=== PATIENT | female | born 1990 | race Caucasian/White ===

== ENCOUNTER 2018-01-30 14:42 | Outpatient (CLI) | payer OTHER ==
[~2018-01-30] VITALS: Ht 162.6 cm; Wt 83.6 kg
[~2018-01-30 14:42] MED LIST: DOCU-131 PO; DOXY100C2 PO; HYDR-3240 PO; IBUP-1222 PO; IBUP200T49 PO; OXYC-302 PO; PREN1TAB60 PO; ZOLP-413 PO
[2018-01-30] MEDS ORDERED: PREN1TAB60 PO (14:56)
[2018-01-30 14:58] VITALS: BP 112/68
== END 2018-01-30 17:00 | disposition home or self-care (01) ==
LOC: LDOP 14:42
PROVIDERS: ATTEND Obstetrics & Gynecology
DX: O36.8930 Maternal care for other specified fetal problems, third trimester, not applicable or unspecified (principal); Z3A.35 35 weeks gestation of pregnancy
CPT/HCPCS: 59025; 76819; 87081; 99201; G0463

== ENCOUNTER 2018-02-18 05:02 | Inpatient (IN) | payer OTHER ==
[~2018-02-18] VITALS: Ht 162.6 cm; Wt 85.7 kg
[2018-02-18] MEDS ORDERED: D5%-LACTATED RINGERS 1,000 ML IV SCH (05:08)
[2018-02-18] MEDS ORDERED: OXYTOCIN 30U/ 0.9% NaCL 500ML 500 ML IV ONE (05:08)
[2018-02-18] MEDS ORDERED: OXYTOCIN 30U/ 0.9% NaCL 500ML 500 ML IV PRN (05:08)
[2018-02-18] MEDS ORDERED: ALUMINUM/MAG/SIMETHICONE 30 ML UDC PO PRN (05:30)
[2018-02-18] MEDS ORDERED: ONDANSETRON 2MG/ML, 2ML IVPush PRN ×3 (05:30→15:30)
[2018-02-18] MEDS ORDERED: FENTANYL PF 100 MCG/2ML IVPush PRN (05:30)
[2018-02-18] MEDS ORDERED: METOCLOPRAMIDE 5 MG/ML, 2ML IVPush PRN (05:30)
[2018-02-18] MEDS ORDERED: SODIUM CITRATE/CITRIC ACID 30 ML UDC PO PRN (05:30)
[2018-02-18] MEDS ORDERED: MISOPROSTOL 25 MCG TABLET VG PRN (05:30)
[2018-02-18] MEDS ORDERED: FENTANYL PF 100 MCG/2ML IV PRN (05:30)
[2018-02-18] MEDS ORDERED: CALCIUM CARBONATE 500 MG TAB.CHEW PO PRN (05:30)
[2018-02-18] MEDS: LACTATED RINGERS 1,000 ML IV SCH ×5 (05:35→20:07)
[2018-02-18 05:42] VITALS: BP 109/67
[2018-02-18 05:42] LABS: BASOPHILS # (AUTO) 0.04 x10^3/uL (0-0.1); BASOPHILS % (AUTO) 1 % (0-1); EOSINOPHILS # (AUTO) 0.08 x10^3/uL (0-0.4); EOSINOPHILS % (AUTO) 1 % (1-7); LYMPHOCYTES # (AUTO) 1.78 x10^3/uL (1-3.4); LYMPHOCYTES % (AUTO) 27 % (22-44); MD NO; MEAN CORPUSCULAR HEMOGLOBIN 26.4 pg (27.0-34.8); MEAN CORPUSCULAR VOLUME 79.8 fL (80-100); MEAN PLATELET VOLUME 8.4 fL (7.4-10.4); MONOCYTES # (AUTO) 0.39 x10^3/uL (0.2-0.8); MONOCYTES % (AUTO) 6 % (2-9); NEUTROPHILS # (AUTO) 4.27 x10^3/uL (1.8-6.8); NEUTROPHILS % (AUTO) 65 % (42-75); PLATELET COUNT 209 x10^3/uL (130-400)
[2018-02-18] MEDS ORDERED: OXYTOCIN 30U/ 0.9% NaCL 500ML 500 ML ONE (06:01)
[2018-02-18] MEDS ORDERED: MISOPROSTOL 200 MCG TABLET ONE (06:02)
[2018-02-18] MEDS ORDERED: LIDOCAINE-MPF 1%, 5ML ONE (06:02)
[2018-02-18] MEDS ORDERED: MISOPROSTOL 25 MCG TABLET ONE (06:03)
[2018-02-18] MEDS ORDERED: BUPIVACAINE 0.25% ONE (11:38)
[2018-02-18] MEDS ORDERED: FENTANYL/BUPIV./NS/PF 250 ML EPIDCONT ONE ×2 (11:38→11:45)
[2018-02-18] MEDS ORDERED: LIDOCAINE/PF 1.5-EPI 1:200K, 30 ML ONE (11:45)
[2018-02-18] MEDS ORDERED: FENTANYL/BUPIV./NS/PF 250 ML EPIDCONT SCH (12:07)
[2018-02-18] MEDS ORDERED: LACTATED RINGERS 1,000 ML IVBOLUS PRN (12:30)
[2018-02-18] MEDS ORDERED: ONDANSETRON ODT 4 MG PO PRN (15:30)
[2018-02-19] MEDS ORDERED: OXYTOCIN 30U/ 0.9% NaCL 500ML 500 ML ONE (00:17)
[2018-02-19] MEDS: OXYTOCIN 30U/ 0.9% NaCL 500ML 500 ML IV SCH ×2 (00:19→10:04)
[2018-02-19] MEDS ORDERED: ACETAMINOPHEN 325 MG TABLET PO PRN ×2 (00:30→01:00)
[2018-02-19] MEDS ORDERED: MISOPROSTOL 200 MCG TABLET PR PRN ×2 (00:30→01:00)
[2018-02-19] MEDS ORDERED: GLYCERIN ADULT SUPP PR PRN (00:30)
[2018-02-19] MEDS ORDERED: IBUPROFEN 600 MG TABLET PO PRN ×2 (00:30→01:00)
[2018-02-19] MEDS ORDERED: METOCLOPRAMIDE 5 MG/ML, 2ML IV PRN (00:30)
[2018-02-19] MEDS ORDERED: METHYLERGONOVINE 0.2 MG/ML IM PRN ×2 (00:30→01:00)
[2018-02-19] MEDS ORDERED: ONDANSETRON 2MG/ML, 2ML IV PRN ×2 (00:30→01:00)
[2018-02-19] MEDS ORDERED: OXYcodone/APAP 5/325MG TABLET PO PRN ×2 (00:30)
[2018-02-19] MEDS ORDERED: BISACODYL 10 MG SUPP PR PRN (00:30)
[2018-02-19] MEDS ORDERED: OXYTOCIN 30U/ 0.9% NaCL 500ML 500 ML IV SCH ×2 (00:44)
[2018-02-19] MEDS ORDERED: IBUPROFEN 600 MG TABLET ONE (00:45)
[2018-02-19] MEDS ORDERED: OXYTOCIN 10 UNITS/ML, 1ML IM PRN (01:00)
[2018-02-19] MEDS ORDERED: CARBOPROST TROMETHAMINE 250 MCG/ML, 1ML IM PRN (01:00)
[2018-02-19] MEDS ORDERED: HYDROcodone/APAP 5/325 TABLET PO PRN (01:00)
[2018-02-19 02:30] VITALS: BP 99/65
[2018-02-19 03:30] VITALS: BP 96/62
[2018-02-19] MEDS: HYDROcodone/APAP 5/325 TABLET PO PRN ×3 (03:57→19:54)
[2018-02-19] MEDS: LACTATED RINGERS 1,000 ML IV SCH ×2 (04:07→12:07)
[2018-02-19] MEDS ORDERED: OXYTOCIN 30U/ 0.9% NaCL 500ML 500 ML IV PRN (05:08)
[2018-02-19 07:22] LABS: BASOPHILS # (AUTO) 0.04 x10^3/uL (0-0.1); BASOPHILS % (AUTO) 0 % (0-1); EOSINOPHILS # (AUTO) 0.01 x10^3/uL (0-0.4); EOSINOPHILS % (AUTO) 0 % (1-7); LYMPHOCYTES # (AUTO) 1.78 x10^3/uL (1-3.4); LYMPHOCYTES % (AUTO) 18 % (22-44); MD NO; MEAN CORPUSCULAR HEMOGLOBIN 26.3 pg (27.0-34.8); MEAN CORPUSCULAR HGB CONC 32.8 g/dL (32.4-35.8); MEAN CORPUSCULAR VOLUME 80.1 fL (80-100); MEAN PLATELET VOLUME 8.4 fL (7.4-10.4); MONOCYTES # (AUTO) 0.48 x10^3/uL (0.2-0.8); MONOCYTES % (AUTO) 5 % (2-9); NEUTROPHILS # (AUTO) 7.55 x10^3/uL (1.8-6.8); NEUTROPHILS % (AUTO) 77 % (42-75); PLATELET COUNT 183 x10^3/uL (130-400); RED BLOOD COUNT 3.65 x10^6/uL (3.82-5.3); RED CELL DISTRIBUTION WIDTH 16.8 % (9.6-15.2)
[2018-02-19] MEDS: DOCUSATE 100 MG CAPSULE PO PRN ×2 (07:35→19:53)
[2018-02-19] MEDS: PRENATAL VIT/IRON/FA 1 EACH TABLET PO SCH (07:35)
[2018-02-19] MEDS: IBUPROFEN 800 MG TABLET PO PRN ×2 (07:35→17:01)
[2018-02-19 08:15] VITALS: BP 113/78
[2018-02-19] MEDS ORDERED: PRENATAL VIT/IRON/FA 1 EACH TABLET PO SCH (09:00)
[2018-02-19 12:00] VITALS: BP 110/78
[2018-02-19 16:00] VITALS: BP 115/70
[2018-02-19 19:55] VITALS: BP 98/64
[2018-02-20] MEDS: IBUPROFEN 800 MG TABLET PO PRN (00:55)
[2018-02-20] MEDS: HYDROcodone/APAP 5/325 TABLET PO PRN (00:58)
[2018-02-20 08:00] VITALS: BP 100/66
[2018-02-20] MEDS: DOCUSATE 100 MG CAPSULE PO PRN (11:07)
[2018-02-20] MEDS: PRENATAL VIT/IRON/FA 1 EACH TABLET PO SCH (11:07)
[2018-02-20] MEDS ORDERED: SENN-1 PO (11:20)
[2018-02-20] MEDS ORDERED: IBUP-1222 PO (11:21)
[2018-02-20] MEDS ORDERED: HYDR-3240 PO (11:22)
== END 2018-02-20 12:25 | disposition home or self-care (01) | DRG 775 ==
LOC: LDIP 05:02 → 2NW 02-19 02:18
PROVIDERS: ADMIT Obstetrics & Gynecology; ATTEND Obstetrics & Gynecology
PROC: 0HQ9XZZ Repair Perineum Skin, External Approach (ICD-10-PCS; principal; 2018-02-18)
PROC: 10E0XZZ Delivery of Products of Conception, External Approach (ICD-10-PCS; 2018-02-18)
PROC: 10907ZC Drainage of Amniotic Fluid, Therapeutic from Products of Conception, Via Natural or Artificial Opening (ICD-10-PCS; 2018-02-18)
PROC: 3E0P7VZ Introduction of Hormone into Female Reproductive, Via Natural or Artificial Opening (ICD-10-PCS; 2018-02-18)
PROC: 3E0R3BZ Introduction of Anesthetic Agent into Spinal Canal, Percutaneous Approach (ICD-10-PCS; 2018-02-18)
PROC: 00HU33Z Insertion of Infusion Device into Spinal Canal, Percutaneous Approach (ICD-10-PCS; 2018-02-18)
DX: O36.5930 Maternal care for other known or suspected poor fetal growth, third trimester, not applicable or unspecified (principal); O70.0 First degree perineal laceration during delivery; Z37.0 Single live birth; Z3A.38 38 weeks gestation of pregnancy
CPT/HCPCS: 36415; 85025; 86850; 86900; J3490; J2590; J3010; J7120; J7121